=== PATIENT | male | born 1975 ===

== ENCOUNTER 2020-04-27 17:25 | Outpatient (REF) | payer SELFPAY | END 2020-04-27 17:26 | disposition home or self-care (01) | LOC: HO.LAB 17:25 | PROVIDERS: Visit Provider Internal Medicine | DX: Z20.828 Contact with and (suspected) exposure to other viral communicable diseases (principal) | CPT/HCPCS: C9803; U0003 ==

== ENCOUNTER 2020-05-01 08:50 | Outpatient (REF) | payer SELFPAY | END 2020-05-01 08:51 | disposition home or self-care (01) | LOC: HO.LAB 08:50 | PROVIDERS: Visit Provider Internal Medicine | DX: Z20.828 Contact with and (suspected) exposure to other viral communicable diseases (principal) | CPT/HCPCS: C9803; U0003 ==

== ENCOUNTER 2023-10-20 08:42 | Outpatient (AMB) | payer OTHER, SELFPAY ==
--- NOTE | 2023-10-20 08:46 | MHC.OFFVIS ---
Vital Signs 10/20/23 08:52 Height 5 ft 7 in Weight 160 lb BMI 25.1 Handedness Right Intake Visit Reasons: N/P Left elbow pain no injury Intake Note: Sudhir is a 48 year old right hand dominant male who presents today as a new patient for a evaluation of his left elbow pain. Hx of Injury at the gym about 4 months ago. Patient reports he was lifting weights and the next day in the morning he felt a sharp pain in his elbow. He states that his pain is on the lateral aspect of the elbow and moves down to his forearm. Patient expresses that his pain is worse when lifting items that are heavy and when pulling. He finds relief with voltaren cream and taking Motrin. Allergies No Known Allergies Allergy (Verified 10/20/23 08:51) HPI HPI N/P Left elbow pain no injury : Details: 48-year-old right hand dominant male who presents in the office today, as a new patient, for an evaluation of left elbow pain. Patient reports an injury at the gym about 4 months ago, in 06/2023. He states he was lifting weights and the next day he felt a sharp pain in his left elbow. He claims his pain is on the lateral aspect of the elbow and radiates to his forearm. Reports an increase in pain when lifting items that are heavy and when pulling. He finds relief with the use of Voltaren cream and Motrin. 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 No ecchymosis, erythema, or edema. No tenderness to palpation over the olecranon. No tenderness to the lateral epicondyle. Tenderness to palpation to the medial epicondyle. NVI. Assessment & Plan Assessment & Plan (1) Golfers elbow of left upper extremity: Code(s): M77.02 - Medial epicondylitis, left elbow Category: Medical Plan Mr. Collins is a 48-year-old right hand dominant male who presents in the office today, as a new patient, for an evaluation of left elbow pain. Patient reports an injury at the gym about 4 months ago, in 06/2023. He states he was lifting weights and the next day he felt a sharp pain in his left elbow. He claims his pain is on the lateral aspect of the elbow and radiates to his forearm. Reports an increase in pain when lifting items that are heavy and when pulling. He finds relief with the use of Voltaren cream and Motrin. Discussed the role of formal physical therapy and cortisone injections with the patient today. We have elected to hold off at this time to attempt a trial of anti-inflammatory. A prescription for Diclofenac 75 mg PO BID was sent to the pharmacy today. Information about a golfer?s elbow brace was supplied to the patient today so he may obtain this OTC. Should the anti-inflammatory and brace not offer the patient relief the next step will be to move forward with a cortisone injection. Follow up will be PRN, or sooner if needed. Medications: New diclofenac sodium 75 mg PO BID PRN 60 tabs 0RF pain 30 days Patient Instructions: Scribed by Marly Martínez medical research associate, for Lian Dickey PA-C on 10/20/2023 at 8:46 am, EST. Coding Level of Care Code New Pt Level 4 (65841) Diagnoses Golfers elbow of left upper extremity M77.02
[2023-10-20 08:52] VITALS: BMI 25.1
== END 2023-10-20 09:07 | disposition home or self-care (01) ==
PROVIDERS: Visit Provider Physician Assistant
DX: M77.02 Medial epicondylitis, left elbow (principal)
CPT/HCPCS: 99203

== ENCOUNTER → 2023-10-20 08:42 | Outpatient (BNVA) | payer OTHER, SELFPAY | PROVIDERS: Visit Provider Physician Assistant | DX: M77.02 Medial epicondylitis, left elbow (principal) | CPT/HCPCS: 99202 ==